=== PATIENT | female | born 1970 | race Caucasian/White ===

== ENCOUNTER 2019-03-26 06:39 | Day surgery (SDC) | payer OTHER ==
[~2019-03-26] VITALS: Ht 157.5 cm; Wt 43.9 kg
[2019-03-26 07:00] VITALS: BP 99/62
[2019-03-26] MEDS ORDERED: HEPA1DIS11 IV (07:50)
[2019-03-26] MEDS ORDERED: MULT1TAB74 PO (07:50)
[2019-03-26] MEDS ORDERED: OPIU10TI5 PO (07:50)
[2019-03-26] MEDS ORDERED: [UNRECOGNIZED DRUG - OTHER] IV (07:50)
[2019-03-26] MEDS ORDERED: CHOL200052 PO (07:50)
[2019-03-26] MEDS ORDERED: ERGO400C PO (07:50)
[2019-03-26] MEDS ORDERED: ANAS1TAB PO (07:50)
[2019-03-26] MEDS ORDERED: PALB125C PO (07:57)
[2019-03-26] MEDS ORDERED: heparin sodium, porcine/PF 100unit/ml 5ML syringe IV STA (09:11)
[2019-03-26] MEDS ORDERED: normal saline 1000ml 1,000 ML IV ONE (09:15)
[2019-03-26] MEDS ORDERED: FLU VACC QS2019-20 36MOS UP/PF 60 MCG/0.5 ML SYRINGE IMVAC ONE (10:55)
== END 2019-03-26 09:50 | disposition home or self-care (01) ==
LOC: SSTAY O 06:39
PROVIDERS: ATTEND Radiology Diagnostic Radiology
DX: T82.898A Other specified complication of vascular prosthetic devices, implants and grafts, initial encounter (principal); C56.9 Malignant neoplasm of unspecified ovary; Z90.49 Acquired absence of other specified parts of digestive tract; Z93.2 Ileostomy status; Z88.2 Allergy status to sulfonamides; Z79.899 Other long term (current) drug therapy; Y83.8 Other surgical procedures as the cause of abnormal reaction of the patient, or of later complication, without mention of misadventure at the time of the procedure; Y92.89 Other specified places as the place of occurrence of the external cause
CPT/HCPCS: 36598; J1642; J7030; Q2037

== ENCOUNTER 2020-02-24 11:45 | Outpatient (CLI) | payer BC ==
[~2020-02-24 11:45] MED LIST: ANAS1TAB PO; CHOL200052 PO; ERGO400C PO; HEPA1DIS11 IV; MULT-620 PO; OPIU10TI5 PO; PALB125C PO; [UNRECOGNIZED DRUG - OTHER] IV
[2020-02-24 14:22] LABS: ALANINE AMINOTRANSFERASE 33 U/L (12-78); ALBUMIN 4.6 G/DL (3.4-5.0); ALBUMIN/GLOBULIN RATIO 1.4 (1.1-1.5); ALKALINE PHOSPHATASE 92 IU/L (46-116); ANION GAP 10 (8-16); ASPARTATE AMINO TRANSFERASE 27 U/L (10-37); BILIRUBIN,TOTAL 0.5 MG/DL (0.1-1.0); BLOOD UREA NITROGEN 39 MG/DL (7-18); BUN/CREATININE RATIO 18.2 (6.6-38.0); CHLORIDE 101 MMOL/L (99-107); CREATININE 2.14 MG/DL (0.40-0.90); GLUCOSE 79 MG/DL (70-104); MAGNESIUM 1.1 MG/DL (1.5-2.4); POTASSIUM 4.5 MMOL/L (3.5-5.1); SODIUM 142 MMOL/L (135-145); TOTAL CARBON DIOXIDE 30.8 MMOL/L (24-32); eGFR 25 ML/MIN
== END 2020-02-24 23:59 | disposition home or self-care (01) ==
LOC: LAB 11:45
PROVIDERS: ATTEND Internal Medicine Critical Care Medicine
DX: K94.3 Esophagostomy complications (principal)
CPT/HCPCS: 36415; 80053; 83735

== ENCOUNTER 2020-08-31 18:16 | Outpatient (CLI) | payer BC ==
[2020-08-31 18:59] LABS: ALANINE AMINOTRANSFERASE 50 U/L (12-78); ALBUMIN 4.4 G/DL (3.4-5.0); ALBUMIN/GLOBULIN RATIO 1.3 (1.1-1.5); ALKALINE PHOSPHATASE 94 IU/L (46-116); ANION GAP 11 (8-16); ASPARTATE AMINO TRANSFERASE 39 U/L (10-37); BILIRUBIN,TOTAL 0.8 MG/DL (0.1-1.0); BLOOD UREA NITROGEN 16 MG/DL (7-18); BUN/CREATININE RATIO 10.1 (6.6-38.0); CALCIUM 9.2 MG/DL (8.5-10.1); CHLORIDE 98 MMOL/L (99-107); CREATININE 1.59 MG/DL (0.40-0.90); GLUCOSE 91 MG/DL (70-104); MAGNESIUM 1.6 MG/DL (1.5-2.4); POTASSIUM 3.7 MMOL/L (3.5-5.1); SODIUM 137 MMOL/L (135-145); TOTAL CARBON DIOXIDE 27.8 MMOL/L (24-32); TOTAL PROTEIN 7.7 G/DL (6.4-8.2); eGFR 35 ML/MIN
== END 2020-08-31 23:59 | disposition home or self-care (01) ==
LOC: LAB SPEC 18:16
PROVIDERS: ATTEND Internal Medicine Critical Care Medicine
DX: K94.13 Enterostomy malfunction (principal)
CPT/HCPCS: 36415; 80053; 83735

== ENCOUNTER 2020-11-02 18:05 | Outpatient (CLI) | payer BC ==
[2020-11-02 18:51] LABS: ALANINE AMINOTRANSFERASE 24 U/L (12-78); ALBUMIN/GLOBULIN RATIO 1.2 (1.1-1.5); ALKALINE PHOSPHATASE 85 IU/L (46-116); ANION GAP 11 (8-16); ASPARTATE AMINO TRANSFERASE 30 U/L (10-37); BILIRUBIN,TOTAL 0.6 MG/DL (0.1-1.0); BLOOD UREA NITROGEN 21 MG/DL (7-18); BUN/CREATININE RATIO 12.6 (6.6-38.0); CALCIUM 8.5 MG/DL (8.5-10.1); CHLORIDE 104 MMOL/L (99-107); CREATININE 1.67 MG/DL (0.40-0.90); GLUCOSE 83 MG/DL (70-104); MAGNESIUM 1.1 MG/DL (1.5-2.4); POTASSIUM 4.5 MMOL/L (3.5-5.1); SODIUM 142 MMOL/L (135-145); TOTAL CARBON DIOXIDE 26.8 MMOL/L (24-32); TOTAL PROTEIN 7.4 G/DL (6.4-8.2); eGFR 33 ML/MIN
== END 2020-11-02 23:59 | disposition home or self-care (01) ==
LOC: LAB SPEC 18:05
PROVIDERS: ATTEND Internal Medicine Critical Care Medicine
DX: K94.13 Enterostomy malfunction (principal)
CPT/HCPCS: 36415; 80053; 83735

== ENCOUNTER 2020-11-09 17:49 | Outpatient (CLI) | payer BC ==
[2020-11-09 18:34] LABS: ALANINE AMINOTRANSFERASE 22 U/L (12-78); ALBUMIN 4.2 G/DL (3.4-5.0); ALBUMIN/GLOBULIN RATIO 1.4 (1.1-1.5); ALKALINE PHOSPHATASE 84 IU/L (46-116); ANION GAP 9 (8-16); ASPARTATE AMINO TRANSFERASE 21 U/L (10-37); BILIRUBIN,TOTAL 0.3 MG/DL (0.1-1.0); BLOOD UREA NITROGEN 26 MG/DL (7-18); BUN/CREATININE RATIO 13.8 (6.6-38.0); CALCIUM 8.4 MG/DL (8.5-10.1); CHLORIDE 106 MMOL/L (99-107); CREATININE 1.88 MG/DL (0.40-0.90); GLUCOSE 104 MG/DL (70-104); MAGNESIUM 1.6 MG/DL (1.5-2.4); POTASSIUM 3.9 MMOL/L (3.5-5.1); SODIUM 144 MMOL/L (135-145); TOTAL PROTEIN 7.2 G/DL (6.4-8.2); eGFR 29 ML/MIN
== END 2020-11-09 23:59 | disposition home or self-care (01) ==
LOC: LAB SPEC 17:49
PROVIDERS: ATTEND Internal Medicine Critical Care Medicine
DX: K94.13 Enterostomy malfunction (principal)
CPT/HCPCS: 36415; 80053; 83735

== ENCOUNTER 2020-11-16 17:49 | Outpatient (CLI) | payer BC ==
[2020-11-16 18:21] LABS: ALANINE AMINOTRANSFERASE 22 U/L (12-78); ALBUMIN 3.9 G/DL (3.4-5.0); ALBUMIN/GLOBULIN RATIO 1.2 (1.1-1.5); ALKALINE PHOSPHATASE 72 IU/L (46-116); ANION GAP 9 (8-16); ASPARTATE AMINO TRANSFERASE 23 U/L (10-37); BILIRUBIN,TOTAL 0.3 MG/DL (0.1-1.0); BLOOD UREA NITROGEN 19 MG/DL (7-18); BUN/CREATININE RATIO 10.8 (6.6-38.0); CALCIUM 8.2 MG/DL (8.5-10.1); CHLORIDE 106 MMOL/L (99-107); CREATININE 1.76 MG/DL (0.40-0.90); GLUCOSE 113 MG/DL (70-104); MAGNESIUM 1.7 MG/DL (1.5-2.4); POTASSIUM 3.9 MMOL/L (3.5-5.1); SODIUM 144 MMOL/L (135-145); TOTAL CARBON DIOXIDE 29.4 MMOL/L (24-32); TOTAL PROTEIN 7.1 G/DL (6.4-8.2); eGFR 31 ML/MIN
== END 2020-11-16 23:59 | disposition home or self-care (01) ==
LOC: LAB SPEC 17:49
PROVIDERS: ATTEND Internal Medicine Critical Care Medicine
DX: K94.13 Enterostomy malfunction (principal)
CPT/HCPCS: 36415; 80053; 83735

== ENCOUNTER 2020-11-21 18:20 | Outpatient (CLI) | payer BC ==
[2020-11-21 19:11] LABS: ALANINE AMINOTRANSFERASE 24 U/L (12-78); ALBUMIN 4.5 G/DL (3.4-5.0); ALBUMIN/GLOBULIN RATIO 1.4 (1.1-1.5); ALKALINE PHOSPHATASE 90 IU/L (46-116); ANION GAP 11 (8-16); ASPARTATE AMINO TRANSFERASE 19 U/L (10-37); BILIRUBIN,TOTAL 0.3 MG/DL (0.1-1.0); BLOOD UREA NITROGEN 26 MG/DL (7-18); CALCIUM 8.5 MG/DL (8.5-10.1); CHLORIDE 103 MMOL/L (99-107); GLUCOSE 96 MG/DL (70-104); MAGNESIUM 1.4 MG/DL (1.5-2.4); POTASSIUM 4.3 MMOL/L (3.5-5.1); SODIUM 142 MMOL/L (135-145); TOTAL PROTEIN 7.7 G/DL (6.4-8.2); eGFR 27 ML/MIN
== END 2020-11-21 23:59 | disposition home or self-care (01) ==
LOC: LAB SPEC 18:20
PROVIDERS: ATTEND Internal Medicine Critical Care Medicine
DX: K94.13 Enterostomy malfunction (principal)
CPT/HCPCS: 36415; 80053; 83735

== ENCOUNTER 2020-11-28 18:13 | Outpatient (CLI) | payer BC ==
[2020-11-28 18:52] LABS: ALANINE AMINOTRANSFERASE 25 U/L (12-78); ALBUMIN/GLOBULIN RATIO 1.2 (1.1-1.5); ALKALINE PHOSPHATASE 94 IU/L (46-116); ANION GAP 12 (8-16); ASPARTATE AMINO TRANSFERASE 24 U/L (10-37); BILIRUBIN,TOTAL 0.3 MG/DL (0.1-1.0); BLOOD UREA NITROGEN 16 MG/DL (7-18); BUN/CREATININE RATIO 9.4 (6.6-38.0); CALCIUM 8.9 MG/DL (8.5-10.1); CHLORIDE 104 MMOL/L (99-107); GLUCOSE 99 MG/DL (70-104); MAGNESIUM 1.9 MG/DL (1.5-2.4); POTASSIUM 4.5 MMOL/L (3.5-5.1); SODIUM 146 MMOL/L (135-145); TOTAL CARBON DIOXIDE 29.6 MMOL/L (24-32); TOTAL PROTEIN 7.3 G/DL (6.4-8.2); eGFR 32 ML/MIN
== END 2020-11-28 23:59 | disposition home or self-care (01) ==
LOC: LAB 18:13
PROVIDERS: ATTEND Internal Medicine Critical Care Medicine
DX: K94.31 Esophagostomy hemorrhage (principal)
CPT/HCPCS: 36415; 80053; 83735

== ENCOUNTER 2020-12-13 18:01 | Outpatient (CLI) | payer BC ==
[2020-12-13 19:29] LABS: ALANINE AMINOTRANSFERASE 20 U/L (12-78); ALBUMIN 4.2 G/DL (3.4-5.0); ALBUMIN/GLOBULIN RATIO 1.4 (1.1-1.5); ALKALINE PHOSPHATASE 87 IU/L (46-116); ANION GAP 11 (8-16); ASPARTATE AMINO TRANSFERASE 21 U/L (10-37); BILIRUBIN,TOTAL 0.4 MG/DL (0.1-1.0); BLOOD UREA NITROGEN 25 MG/DL (7-18); BUN/CREATININE RATIO 14.5 (6.6-38.0); CALCIUM 8.9 MG/DL (8.5-10.1); CHLORIDE 107 MMOL/L (99-107); CREATININE 1.73 MG/DL (0.40-0.90); GLUCOSE 101 MG/DL (70-104); POTASSIUM 4.3 MMOL/L (3.5-5.1); SODIUM 146 MMOL/L (135-145); TOTAL PROTEIN 7.3 G/DL (6.4-8.2); eGFR 31 ML/MIN
== END 2020-12-13 23:59 | disposition home or self-care (01) ==
LOC: LAB SPEC 18:01
PROVIDERS: ATTEND Internal Medicine Critical Care Medicine
DX: K94.13 Enterostomy malfunction (principal)
CPT/HCPCS: 36415; 80053; 83735

== ENCOUNTER 2020-12-20 17:57 | Outpatient (CLI) | payer BC ==
[2020-12-20 19:14] LABS: ALANINE AMINOTRANSFERASE 23 U/L (12-78); ALBUMIN 4.4 G/DL (3.4-5.0); ALBUMIN/GLOBULIN RATIO 1.4 (1.1-1.5); ALKALINE PHOSPHATASE 90 IU/L (46-116); ANION GAP 12 (8-16); ASPARTATE AMINO TRANSFERASE 22 U/L (10-37); BILIRUBIN,TOTAL 0.4 MG/DL (0.1-1.0); BLOOD UREA NITROGEN 30 MG/DL (7-18); BUN/CREATININE RATIO 15.3 (6.6-38.0); CALCIUM 8.7 MG/DL (8.5-10.1); CHLORIDE 103 MMOL/L (99-107); CREATININE 1.96 MG/DL (0.40-0.90); GLUCOSE 99 MG/DL (70-104); MAGNESIUM 1.8 MG/DL (1.5-2.4); POTASSIUM 4.1 MMOL/L (3.5-5.1); SODIUM 142 MMOL/L (135-145); TOTAL CARBON DIOXIDE 26.9 MMOL/L (24-32); TOTAL PROTEIN 7.5 G/DL (6.4-8.2); eGFR 27 ML/MIN
== END 2020-12-20 23:59 | disposition home or self-care (01) ==
LOC: LAB SPEC 17:57
PROVIDERS: ATTEND Internal Medicine Critical Care Medicine
DX: K94.13 Enterostomy malfunction (principal)
CPT/HCPCS: 36415; 80053; 83735

== ENCOUNTER 2020-12-27 18:07 | Outpatient (CLI) | payer BC ==
[2020-12-27 18:45] LABS: ALANINE AMINOTRANSFERASE 24 U/L (12-78); ALBUMIN 4.2 G/DL (3.4-5.0); ALBUMIN/GLOBULIN RATIO 1.2 (1.1-1.5); ALKALINE PHOSPHATASE 94 IU/L (46-116); ANION GAP 12 (8-16); ASPARTATE AMINO TRANSFERASE 26 U/L (10-37); BILIRUBIN,TOTAL 0.5 MG/DL (0.1-1.0); BLOOD UREA NITROGEN 28 MG/DL (7-18); BUN/CREATININE RATIO 13.1 (6.6-38.0); CHLORIDE 102 MMOL/L (99-107); CREATININE 2.14 MG/DL (0.40-0.90); GLUCOSE 105 MG/DL (70-104); MAGNESIUM 1.4 MG/DL (1.5-2.4); POTASSIUM 4.2 MMOL/L (3.5-5.1); SODIUM 141 MMOL/L (135-145); TOTAL CARBON DIOXIDE 26.9 MMOL/L (24-32); TOTAL PROTEIN 7.6 G/DL (6.4-8.2); eGFR 25 ML/MIN
== END 2020-12-27 23:59 | disposition home or self-care (01) ==
LOC: LAB SPEC 18:07
PROVIDERS: ATTEND Internal Medicine Critical Care Medicine
DX: K94.13 Enterostomy malfunction (principal)
CPT/HCPCS: 36415; 80053; 83735

== ENCOUNTER 2021-02-10 16:29 | Outpatient (CLI) | payer BC ==
[2021-02-10 17:10] LABS: BASOPHILS # (AUTO) 0.1 X10'3 (0-0.2); BASOPHILS % (AUTO) 1.9 % (0-1); EOSINOPHILS # (AUTO) 0.2 X10'3 (0-0.9); EOSINOPHILS % (AUTO) 3.5 % (0-6); HEMATOCRIT 26.6 % (35.0-45.0); HEMOGLOBIN 8.8 g/dl (12.0-16.0); LYMPHOCYTES # (AUTO) 1.3 X10'3 (1.1-4.8); MEAN CORPUSCULAR HEMOGLOBIN 30.6 PG (27.0-31.0); MEAN CORPUSCULAR HGB CONC 33.2 g/dL (33.0-36.5); MEAN CORPUSCULAR VOLUME 92.3 FL (78-98); MEAN PLATELET VOLUME 7.4 FL (7.4-10.4); MONOCYTES # (AUTO) 0.3 X10'3 (0-0.9); MONOCYTES % (AUTO) 6.4 % (2-12); NEUTROPHILS % (AUTO) 62.2 % (42-75); PLATELET COUNT 327 X10'3 (140-440); RED BLOOD COUNT 2.88 X10'6 (4.20-5.60); RED CELL DISTRIBUTION WIDTH 14.9 % (11.5-14.5); WHITE BLOOD COUNT 4.9 X10'3 (4.5-11.0)
[2021-02-10 17:13] LABS: ANION GAP 11 (8-16); BLOOD UREA NITROGEN 23 MG/DL (7-18); BUN/CREATININE RATIO 17.6 (6.6-38.0); CHLORIDE 106 MMOL/L (99-107); CREATININE 1.31 MG/DL (0.40-0.90); GLUCOSE 87 MG/DL (70-104); POTASSIUM 4.4 MMOL/L (3.5-5.1); SODIUM 143 MMOL/L (135-145); TOTAL CARBON DIOXIDE 26.2 MMOL/L (24-32)
[2021-02-10 17:14] LABS: ALANINE AMINOTRANSFERASE 26 U/L (12-78); ALBUMIN 3.8 G/DL (3.4-5.0); ALBUMIN/GLOBULIN RATIO 0.9 (1.1-1.5); ALKALINE PHOSPHATASE 102 IU/L (46-116); ASPARTATE AMINO TRANSFERASE 20 U/L (10-37); BILIRUBIN,TOTAL 0.2 MG/DL (0.1-1.0); CALCIUM 8.9 MG/DL (8.5-10.1); MAGNESIUM 1.1 MG/DL (1.5-2.4); eGFR 43 ML/MIN
== END 2021-02-10 23:59 | disposition home or self-care (01) ==
LOC: LAB SPEC 16:29
PROVIDERS: ATTEND Internal Medicine Critical Care Medicine
DX: K94.13 Enterostomy malfunction (principal)
CPT/HCPCS: 36415; 80053; 83735; 85025

== ENCOUNTER 2021-03-30 06:18 | Day surgery (SDC) | payer BC, MEDICARE ==
[~2021-03-30] VITALS: Ht 157.5 cm; Wt 49.7 kg
[2021-03-30] MEDS ORDERED: normal saline 1000ml 1,000 ML IV PRN (06:35)
[2021-03-30 07:00] VITALS: BP 102/63
[2021-03-30] MEDS ORDERED: ONDA4TAB6 PO (07:10)
[2021-03-30] MEDS ORDERED: CHOL100025 PO (07:12)
[2021-03-30] MEDS ORDERED: CYAN10007 SQ (07:14)
[2021-03-30] MEDS ORDERED: OSC500T PO (07:15)
[2021-03-30] MEDS ORDERED: LIDOcaine 1% 30ml preserv. free vial IJ STA (07:50)
[2021-03-30] MEDS ORDERED: midazolam 1 mg/ML 2ml injection ONE (08:27)
[2021-03-30] MEDS ORDERED: heparin sodium, porcine/PF 100unit/ml 5ML syringe ONE (08:27)
[2021-03-30] MEDS ORDERED: fentaNYL/PF 50MCG/1 ML 2ML syringe ONE (08:27)
[2021-03-30 09:37] VITALS: BP 111/69
[2021-03-30 09:45] VITALS: BP 116/79
[2021-03-30 10:00] VITALS: BP 90/55
[2021-03-30 10:15] VITALS: BP 108/73
[2021-03-30 10:30] VITALS: BP 98/65
== END 2021-03-30 10:45 | disposition home or self-care (01) ==
LOC: SSTAY O 06:18
PROVIDERS: ATTEND Radiology Vascular & Interventional Radiology
DX: C56.9 Malignant neoplasm of unspecified ovary (principal); Z88.2 Allergy status to sulfonamides; Z79.899 Other long term (current) drug therapy; Z90.49 Acquired absence of other specified parts of digestive tract; Z93.2 Ileostomy status
CPT/HCPCS: 36561; 76937; 77001; 99152; C1769; C1788; C1894; J1642; J2250; J3010; 99153

== ENCOUNTER 2021-10-24 11:52 | Day surgery (SDC) | payer BC, MEDICARE ==
[~2021-10-24] VITALS: Ht 157.5 cm; Wt 48.3 kg
[~2021-10-24 11:52] MED LIST changes: +CHOL100025 PO; +CYAN10007 SQ; +ONDA4TAB6 PO; +OSC500T PO
[2021-10-24 12:44] VITALS: BP_SYST 125; BP_SYST 129; BP_DIAS 101; BP_DIAS 105
[2021-10-24] MEDS ORDERED: LACTATED RINGERS IV (12:54)
[2021-10-24] MEDS ORDERED: Lactated Ringers IV (12:55)
[2021-10-24] MEDS ORDERED: Magnesium IV (12:57)
[2021-10-24] MEDS ORDERED: CHOL100025 PO (13:00)
[2021-10-24] MEDS ORDERED: LOPE-190 PO (13:02)
[2021-10-24] MEDS ORDERED: LIDOcaine 1% 30ml preserv. free vial SQ STA (13:26)
== END 2021-10-24 14:40 | disposition home or self-care (01) ==
LOC: SSTAY O 11:52
PROVIDERS: ATTEND Preventive Medicine Aerospace Medicine
DX: R59.0 Localized enlarged lymph nodes (principal); Z85.43 Personal history of malignant neoplasm of ovary
CPT/HCPCS: 27040; 36415; 38505; 76942; 88184; 88185

== ENCOUNTER 2021-12-01 17:49 | Outpatient (CLI) | payer BC, MEDICARE ==
[~2021-12-01 17:49] MED LIST changes: -CHOL200052 PO; -ERGO400C PO; +LOPE-190 PO; +Lactated Ringers IV; +Magnesium IV; -OSC500T PO; -[UNRECOGNIZED DRUG - OTHER] IV
[2021-12-01 18:28] LABS: EOSINOPHILS % (AUTO) 1.6 % (0-6); HEMATOCRIT 29.2 % (35.0-45.0); HEMOGLOBIN 9.9 g/dl (12.0-16.0); LYMPHOCYTES # (AUTO) 0.6 X10'3 (1.1-4.8); LYMPHOCYTES % (AUTO) 21.5 % (21-51); MEAN CORPUSCULAR HEMOGLOBIN 32.1 PG (27.0-31.0); MEAN CORPUSCULAR HGB CONC 33.9 g/dL (33.0-36.5); MEAN CORPUSCULAR VOLUME 94.6 FL (78-98); MEAN PLATELET VOLUME 7.4 FL (7.4-10.4); MONOCYTES # (AUTO) 0.2 X10'3 (0-0.9); MONOCYTES % (AUTO) 7.2 % (2-12); NEUTROPHILS # (AUTO) 2.1 X10'3 (1.8-7.7); NEUTROPHILS % (AUTO) 68.7 % (42-75); PLATELET COUNT 185 X10'3 (140-440); RED BLOOD COUNT 3.09 X10'6 (4.20-5.60); RED CELL DISTRIBUTION WIDTH 13.8 % (11.5-14.5)
[2021-12-01 18:52] LABS: ALANINE AMINOTRANSFERASE 30 U/L (12-78); ALBUMIN 3.5 G/DL (3.4-5.0); ALKALINE PHOSPHATASE 103 IU/L (46-116); ANION GAP 11 (8-16); ASPARTATE AMINO TRANSFERASE 27 U/L (10-37); BILIRUBIN,TOTAL 0.4 MG/DL (0.1-1.0); BLOOD UREA NITROGEN 20 MG/DL (7-18); BUN/CREATININE RATIO 9.2 (6.6-38.0); CALCIUM 8.7 MG/DL (8.5-10.1); CHLORIDE 101 MMOL/L (99-107); CREATININE 2.17 MG/DL (0.40-0.90); GLUCOSE 125 MG/DL (70-104); PHOSPHORUS 3.1 MG/DL (2.3-4.5); POTASSIUM 3.8 MMOL/L (3.5-5.1); SODIUM 140 MMOL/L (135-145); TOTAL CARBON DIOXIDE 28.4 MMOL/L (24-32); eGFR 24 ML/MIN
[2021-12-01 23:52] LABS: TOTAL CELLS COUNTED 100
[2021-12-02 02:55] LABS: PLATELET ESTIMATE NORMAL
== END 2021-12-01 23:59 | disposition home or self-care (01) ==
LOC: LAB SPEC 17:49
PROVIDERS: ATTEND Internal Medicine Critical Care Medicine
DX: K94.13 Enterostomy malfunction (principal)
CPT/HCPCS: 36415; 80053; 82607; 82746; 83735; 84100; 85007; 85025